=== PATIENT | female | born 1970 | race Caucasian/White ===

== ENCOUNTER 2021-09-26 16:28 | Outpatient (CLI) | payer BC, SELFPAY ==
--- NOTE | ~2021-09-26 | MM_ITS ---
EXAMINATION: MM screening estrellita BI w griffin HISTORY: Screening TECHNIQUE: Craniocaudal and mediolateral oblique 3-D tomosynthesis images were obtained and synthetic 2-D images were generated. CAD analysis was submitted and interpreted. COMPARISON: Comparison to multiple prior studies sequentially, with oldest reviewed study dated 10/10. BREAST PARENCHYMAL COMPOSITION: The breasts are heterogenously dense, which may obscure small masses FINDINGS: There is no evidence of suspicious mass, calcification, or architectural distortion to sugg est malignancy in either breast. There has been no suspicious interval change. IMPRESSION: 1. No mammographic evidence of malignancy. 2. Recommend routine screening mammography in one year. BI-RADS Category 1: Negative Reviewed, dictated and finalized at location A. [employer]
== END 2021-09-26 16:29 | disposition home or self-care (01) ==
PROVIDERS: PCP Family Medicine; Visit Provider Obstetrics & Gynecology
DX: Z12.31 Encounter for screening mammogram for malignant neoplasm of breast (principal)
CPT/HCPCS: 77063; 77067

== ENCOUNTER 2024-01-22 01:34 | Day surgery (SDC) | payer BC, SELFPAY ==
[2024-01-07 08:46] VITALS: BMI 26.7
[2024-01-22 08:08] VITALS: BP 144/96; PULSE 84; RESP 16; TEMP 36.1; O2SAT 99
[2024-01-22] MEDS: LACTATED RINGERS 1,000 ML 150 ML IV CONT (08:17)
--- NOTE | 2024-01-22 09:06 | WPDANESEPPF ---
Anes - Initial Pre Proc Eval Procedure: Operation Date: 01/22/24 09:30 Proposed Procedures p Colonoscopy - Sang Palacios MD Date/Time: 01/22/24 09:06 Surgeon: Sang Palacios MD Pre Op Diagnosis: fam hx colon ca Patient Data Age: 53 Gender: F Height: 1.7 m Weight: 80.7 kg Last Vital Signs Temp 97 F L 01/22/24 08:08 Pulse 84 01/22/24 08:08 Resp 16 01/22/24 08:08 BP 144/96 H 01/22/24 08:08 Pulse Ox 99 01/22/24 08:08 O2 Del Method Room Air 01/22/24 08:08 Allergies Allergy/AdvReac Type Severity Reaction Status Date / Time aspirin Allergy Mild hives Verified 01/22/24 08:07 Home Medications Medication Instructions Recorded Confirmed Type alprazolam 0.25 mg tablet (Xanax) 0.25 mg PO TID PRN Anxiety 03/21/20 01/07/24 History paroxetine HCl 20 mg tablet 20 mg PO DAILY 08/24/23 01/07/24 History ketoconazole 2 % shampoo 1 applic topical 3XW PRN Allergic 01/07/24 01/07/24 History Reaction semaglutide (weight loss) 2.4 2.4 mg subcut WEEKLY 01/07/24 01/22/24 History mg/0.75 mL subcutaneous pen injector (Wegovy) trazodone 50 mg tablet See Rx Instructions .Route 01/18/24 01/22/24 Rx .COMPLEX #180 tabs Patient hx anesthesia problems: none Family hx anesthesia problems: none Results Review: All pre-operative results and documents have been reviewed as part of the pre-operative evaluation. [facility] Past Medical History Medical History (Updated 08/24/23 @ 13:40 by Natasha Kaur) BMI 28.0-28.9,adult BMI 36.0-36.9,adult Family History Family History Grandparent Cerebrovascular accident Mother Hypertension Social History Social History (Updated 08/24/23 @ 13:43 by Natasha Kaur) Smoking status: Former smoker Tobacco type: cigarettes Second hand tobacco smoke exposure: No Smoking end date: 09/14/15 Alcohol intake: current Drinks per week: 27 Substance use: current Substance use type: marijuana Lack of Transportation: No Lack of Food: Never True Current Housing: I Have Housing Concerned About Future Housing: No Difficulty Paying Gas/Electric Bills: No Difficulty Paying for Meds: No Currently Unemployed: No Education: Associate Degree Difficulty w/ Childcare or Family Care: No Living arrangements: other Spiritual care concerns: No Anes - Eval Final PreProcedure Day of Procedure 01/22/24 09:06 Patient weight: normal Heart: regular rate and rhythm Lungs: clear to auscultation Airway: Mallampati scale class II Neurological: alert and oriented Last oral intake: >/= 8 hours ASA classification: II Emergent: no Anesthetic plan: proceed Anesthesia type and monitoring: general GIVS and standard monitoring Results Review: All pre-operative results and documents have been reviewed as part of the pre-operative evaluation. Informed Consent: The patient's anesthetic plan and its attendant risks and benefits were discussed with the patient/family/POA. Questions were solicited and answers provided to the satisfaction of the patient/family/POA.
--- NOTE | 2024-01-22 09:20 | PM.HPGS ---
History of Present Illness History of Present Illness Consent: Risks, benefits, and alternatives have been discussed and questions answered. Patient agrees to proceed with procedure. Chief complaint: fam hx colon ca Narrative: Sonya Rucker is a 53 year old female here for first screening colonoscopy Review of Systems Review of Systems: All systems reviewed & are unremarkable except as noted in HPI and below PMFSH Past Medical History Medical History (Updated 01/22/24 @ 09:21 by Sang Palacios MD) BMI 28.0-28.9,adult BMI 36.0-36.9,adult Colon cancer screening Family History Family History Grandparent Cerebrovascular accident Mother Hypertension Social History Social History (Updated 08/24/23 @ 13:43 by Natasha Kaur) Smoking status: Former smoker Tobacco type: cigarettes Second hand tobacco smoke exposure: No Smoking end date: 09/14/15 Alcohol intake: current Drinks per week: 27 Substance use: current Substance use type: marijuana Lack of Transportation: No Lack of Food: Never True Current Housing: I Have Housing Concerned About Future Housing: No Difficulty Paying Gas/Electric Bills: No Difficulty Paying for Meds: No Currently Unemployed: No Education: Associate Degree Difficulty w/ Childcare or Family Care: No Living arrangements: other Spiritual care concerns: No Meds Home Medications and Allergies Home Medications Medication Instructions Recorded Confirmed Type alprazolam 0.25 mg tablet (Xanax) 0.25 mg PO TID PRN Anxiety 03/21/20 01/07/24 History paroxetine HCl 20 mg tablet 20 mg PO DAILY 08/24/23 01/07/24 History ketoconazole 2 % shampoo 1 applic topical 3XW PRN Allergic 01/07/24 01/07/24 History Reaction semaglutide (weight loss) 2.4 2.4 mg subcut WEEKLY 01/07/24 01/22/24 History mg/0.75 mL subcutaneous pen injector (Janetvkoby) trazodone 50 mg tablet See Rx Instructions .Route 01/18/24 01/22/24 Rx .COMPLEX #180 tabs Allergies Allergy/AdvReac Type Severity Reaction Status Date / Time aspirin Allergy Mild hives Verified 01/22/24 08:07 Vital Signs Vital Signs - 24 hr 01/22/24 08:08 Temperature 97 F L Pulse Rate 84 Respiratory Rate 16 Blood Pressure 144/96 H Pulse Oximetry 99 Oxygen Delivery Room Air Exam Const: General: comfortable and no acute distress HENMT: Face/Nose/Sinus: Normal nares present Eyes: General: appearance normal, both eyes and all related structures Neck: Neck: no JVD Resp: Auscultation: clear to auscultation bilaterally Cardio: Rate: regular rate Rhythm: regular rhythm GI: Inspection: non-distended GI Palp: Yes Soft to palpation Skin: General skin exam: normal color Neuro: General: gait normal Speech: normal speech Extrem: General: normal to inspection Psych: Mental Status: mental status grossly normal Assessment and Plan Assessment and plan (1) Colon cancer screening: Code(s): Z12.11 - Encounter for screening for malignant neoplasm of colon Status: Acute Assessment and Plan: colonoscopy
[2024-01-22 09:41] VITALS: BP 118/95; PULSE 73; RESP 16; O2SAT 96
[2024-01-22 09:51] VITALS: BP 137/86; PULSE 78; RESP 16; O2SAT 100
[2024-01-22 10:00] VITALS: BP 128/87; PULSE 72; RESP 16; O2SAT 100
== END 2024-01-22 10:17 | disposition home or self-care (01) ==
PROVIDERS: PCP Family Medicine; Visit Provider Internal Medicine Gastroenterology
PROC: 0DJD8ZZ Inspection of Lower Intestinal Tract, Via Natural or Artificial Opening Endoscopic (ICD-10-PCS; CPT 45378; principal; 2024-01-22 09:30)
DX: Z12.11 Encounter for screening for malignant neoplasm of colon (principal); D12.3 Benign neoplasm of transverse colon; K63.5 Polyp of colon; K57.30 Diverticulosis of large intestine without perforation or abscess without bleeding; K64.8 Other hemorrhoids; Z80.0 Family history of malignant neoplasm of digestive organs; Z79.85 Long-term (current) use of injectable non-insulin antidiabetic drugs; Z87.891 Personal history of nicotine dependence; F12.90 Cannabis use, unspecified, uncomplicated
CPT/HCPCS: 45385; 88305; J2704; J7120